=== PATIENT | male | born 1975 | race Two or more races ===

== ENCOUNTER 2021-03-20 14:22 | Inpatient (IN) | payer OTHER ==
[~2021-03-20] VITALS: Ht 165.1 cm; Wt 79.8 kg
== END 2021-03-26 16:15 | disposition home or self-care (01) | DRG 391 ==
LOC: ER 14:22 → MEDI 22:43
PROVIDERS: ADMIT Internal Medicine; ATTEND Internal Medicine
PROC: BW2110Z Computerized Tomography (CT Scan) of Abdomen and Pelvis using Low Osmolar Contrast, Unenhanced and Enhanced (ICD-10-PCS; principal; 2021-03-21)
PROC: 05HY33Z Insertion of Infusion Device into Upper Vein, Percutaneous Approach (ICD-10-PCS; 2021-03-21)
PROC: 0W9F3ZZ Drainage of Abdominal Wall, Percutaneous Approach (ICD-10-PCS; 2021-03-23)
PROC: 0W9J3ZZ Drainage of Pelvic Cavity, Percutaneous Approach (ICD-10-PCS; 2021-03-23)
PROC: BW2110Z Computerized Tomography (CT Scan) of Abdomen and Pelvis using Low Osmolar Contrast, Unenhanced and Enhanced (ICD-10-PCS; 2021-03-26)
DX: K57.20 Diverticulitis of large intestine with perforation and abscess without bleeding (principal); K65.1 Peritoneal abscess; Z20.822 Contact with and (suspected) exposure to COVID-19

== ENCOUNTER 2021-05-12 08:39 | Day surgery (SDC) | payer OTHER | END 2021-05-12 14:35 | disposition home or self-care (01) | LOC: AMB-ENDOS 08:39 | PROVIDERS: ATTEND Surgery | DX: D12.8 Benign neoplasm of rectum (principal); Z20.822 Contact with and (suspected) exposure to COVID-19 ==